=== PATIENT | female | born 1990 | race Caucasian/White ===

== ENCOUNTER 2022-01-11 09:59 | Outpatient (CLI) | payer SELFPAY ==
--- NOTE | 2022-01-11 09:45 | RT.EKG_ITS ---
APPROVED REPORT Exam: Resting ECG Reason for Exam: palpitations Patient Location: O HR:86 bpm ECG Measurements Heart Rate 86 AXIS VT 117 P 69 QRSd 92 QRS 92 QT 347 T 29 QTc 415 Conclusion Sinus rhythm...normal P axis, V-rate 50- 99 Borderline short VT interval...VT int <120mS Otherwise normal
== END 2022-01-11 10:00 | disposition home or self-care (01) ==
LOC: DI.CARD 10:00
PROVIDERS: PCP Neuromusculoskeletal Medicine & OMM; Visit Provider Internal Medicine Cardiovascular Disease
DX: R00.2 Palpitations (principal)
CPT/HCPCS: 93010